=== PATIENT | male | born 1975 | race Caucasian/White ===

== ENCOUNTER 2018-10-03 12:16 | Emergency (ER) | payer BC, OTHER ==
[2018-10-03 13:07] VITALS: BP 121/78
--- NOTE | 2018-10-03 13:58 | UC ---
Hand/Wrist HPI - HPI Summary HPI Summary: Injured left thumb when playing baseball yesterday when a person ran into it as he was trying to tag him out. Complains of pain at the base of the left thumb. - History Of Current Complaint Chief Complaint: UCUpperExtremity Stated Complaint: LEFT THUMB INJURY Time Seen by Provider: 10/03/18 13:13 Hx Obtained From: Patient ?: No Onset/Duration: Sudden Onset Severity Initially: Moderate Severity Currently: Moderate Pain Intensity: 7 Character Of Pain: Dull, Aching Aggravating Factor(s): Movement, Flexion, Extension Associated Signs And Symptoms: Positive: Negative - Allergies/Home Medications Allergies/Adverse Reactions: Allergies Allergy/AdvReac Type Severity Reaction Status Date / Time Penicillins Allergy Rash Verified 10/03/18 13:01 Home Medications: Home Medications Ibuprofen TAB* [Advil TAB*] 600 mg PO Q6H PRN 10/03/18 [History Confirmed ] PMH/Surg Hx/FS Hx/Imm Hx Previously Healthy: Yes - Surgical History Surgical History: Yes Surgery Procedure, Year, and Place: tonsils - Family History Known Family History: Positive: Non-Contributory - Social History Alcohol Use: Occasionally Substance Use Type: None Smoking Status (MU): Never Smoked Tobacco Review of Systems All Other Systems Reviewed And Are Negative: Yes Motor: Positive: Negative, Other - Pain at the base of the thumb Musculoskeletal: Positive: Negative Neurological: Positive: Negative Psychological: Positive: Negative Is Patient Immunocompromised?: No Physical Exam Triage Information Reviewed: Yes Appearance: Well-Appearing, No Pain Distress, Well-Nourished Vital Signs: Initial Vital Signs Temp 97.9 F 10/03/18 13:02 Pulse 58 10/03/18 13:02 Resp 16 10/03/18 13:02 BP 121/78 10/03/18 13:02 Pulse Ox 100 10/03/18 13:02 Vital Signs Reviewed: Yes Musculoskeletal: Positive: Strength Intact, ROM Intact, Other: - Pain on palpation at the base of the left thumb. No bruising, erythema, deformity or swelling. Neurological: Positive: Alert, Muscle Tone Normal Psychological Exam: Normal Skin Exam: Normal Hand/Wrist Course/Dx - Course Course Of Treatment: Thumb x-ray: REPORT AND IMPRESSION: #. Negative for fracture or malalignment. #. Preserved joint spaces. #. Fusiform soft tissue swelling. - Differential Dx/Diagnosis Provider Diagnosis: Left thumb sprain Discharge - Sign-Out/Discharge Documenting (check all that apply): Patient Departure All imaging exams completed and their final reports reviewed: Yes - Discharge Plan Condition: Good Disposition: HOME Patient Education Materials: Finger Sprain (ED) Referrals: Zana Chiu MD [Primary Care Provider] - Zana Mcdowell MD [Medical Doctor] - Additional Instructions: Tylenol/Motrin as directed for pain. Follow up with Orthopedist in 4-5 days if no improvement. - Billing Disposition and Condition Condition: GOOD Disposition: Home
== END 2018-10-03 14:08 | disposition home or self-care (01) ==
LOC: UCCORT 12:16
DX: S63.602A Unspecified sprain of left thumb, initial encounter (principal); W50.0XXA Accidental hit or strike by another person, initial encounter; Y93.64 Activity, baseball; Y92.9 Unspecified place or not applicable
CPT/HCPCS: 99211; G0463

== ENCOUNTER 2019-02-27 14:30 | Emergency (ER) | payer BC ==
[2019-02-27 14:58] VITALS: BP 131/87
--- NOTE | 2019-02-27 15:56 | ED ---
Dizziness - HPI Summary HPI Summary: 44-year-old white male presents with acute dyspnea since yesterday associated with nausea. Patient complains of sensation of sudden sensation of room spinning associated with dizziness and nausea. Denies any recent ear infection or URI symptoms. Patient states he has family history of vertigo-like sx- his father and grandfather both with Mnire's disease in the family. - History Of Current Complaint Chief Complaint: UCDizziness Stated Complaint: DIZZY Time Seen by Provider: 02/27/19 15:01 Hx Obtained From: Patient Onset/Duration: Suddenly Timing: Constant Severity Initially: Moderate Severity Currently: Moderate Character: Head Spinning, Lightheaded, Dizzy Aggravating Factor(s): Position Change, Supine To Erect, Change In Head Position Alleviating Factor(s): Nothing Associated Signs And Symptoms: Positive: Negative - Allergies/Home Medications Allergies/Adverse Reactions: Allergies Allergy/AdvReac Type Severity Reaction Status Date / Time Penicillins Allergy Rash Verified 02/27/19 14:53 PMH/Surg Hx/FS Hx/Imm Hx Previously Healthy: Yes Endocrine/Hematology History: Denies: Hx Diabetes Cardiovascular History: Denies: Hx Hypertension History: Denies: Hx Dialysis, Hx Renal Disease - Surgical History Surgery Procedure, Year, and Place: tonsils Infectious Disease History: No Infectious Disease History: Reports: Traveled Outside the in Last 30 Days - [place] 01/24/19-01/30/19 Denies: Hx Clostridium Difficile, Hx Hepatitis, Hx Human Immunodeficiency Virus (HIV), Hx of Known/Suspected MRSA, Hx Shingles, Hx Tuberculosis, Hx Known/ Suspected VRE, Hx Known/Suspected VRSA, History Other Infectious Disease - Family History Known Family History: Positive: Non-Contributory - Social History Alcohol Use: Occasionally Substance Use Type: Reports: None Smoking Status (MU): Never Smoked Tobacco Review of Systems Constitutional: Negative Eyes: Negative ENT: Negative Cardiovascular: Negative Respiratory: Negative Gastrointestinal: Negative Genitourinary: Negative Musculoskeletal: Negative Skin: Negative Neurological: Other - sudden dizziness Psychological: Normal All Other Systems Reviewed And Are Negative: Yes Physical Exam - Summary Physical Exam Summary: Appearance: Positive: No Pain Distress Skin: Positive: Warm Head/Face: Positive: Normal Head/Face Inspection Eyes: :Normal ENT: Normal ENT inspection Neck: Positive: Supple Respiratory/Lung Sounds: Positive: Clear to Auscultation. Cardiovascular: Positive: Normal, RRR, S1, S2 Abdomen : soft, NT/ND Musculoskeletal: Positive: Normal, Strength/ROM Intact Neurological: Positive: CN 2-12 grossly intact, horizontal nystagmus Vital Signs On Initial Exam: Initial Vitals Temp Pulse Resp BP Pulse Ox 36.8 C 59 16 131/87 98 02/27/19 14:53 02/27/19 14:53 02/27/19 14:53 02/27/19 14:53 02/27/19 14:53 Diagnostics - Vital Signs Vital Signs Temp Pulse Resp BP Pulse Ox 02/27/19 14:53 36.8 C 59 16 131/87 98 - Laboratory Lab Statement: Any lab studies that have been ordered have been reviewed, and results considered in the medical decision making process. Dizzy Course/Dx - Course Assessment/Plan: dizziness occurs primarily with head movement and orthstatic change from sitting to standing, pt also state he was taking OTC green coffee beans to lose weight, advised to stop taking the supplement and see it it would stop. NO focal neuro deficits on exam or on hx. Advised to go see neurology if sx persist - Diagnoses Provider Diagnoses: Vertigo Discharge ED - Sign-Out/Discharge Documenting (check all that apply): Patient Departure All imaging exams completed and their final reports reviewed: No Studies - Discharge Plan Condition: Stable Disposition: HOME Prescriptions: Meclizine TAB* [Antivert 12.5 TAB*] 25 mg PO TID PRN 5 Days #15 tab PRN Reason: Dizziness Patient Education Materials: Vertigo (ED) Referrals: Zana Chiu MD [Primary Care Provider] - Additional Instructions: Please follow up with neurology if symptoms persist. - Billing Disposition and Condition Condition: STABLE Disposition: Home
== END 2019-02-27 15:36 | disposition home or self-care (01) ==
LOC: UCCORT 14:30
DX: R42 Dizziness and giddiness (principal); Z88.0 Allergy status to penicillin
CPT/HCPCS: 99212; G0463

== ENCOUNTER 2019-03-21 12:24 | Emergency (ER) | payer BC ==
[2019-03-21 13:00] VITALS: BP 139/95
--- NOTE | 2019-03-21 13:06 | UC ---
Upper Extremity HPI - HPI Summary HPI Summary: 10 days ago started w/ R shoulder pain, elbow and neck pain. The day prior to pain he was weight lifting which was his usual routine. no changes in lbs or form. acetaminophen and ibuprofen, heat with little relief. - History of Current Complaint Chief Complaint: UCUpperExtremity Stated Complaint: RIGHT SHOULDER COMPLAINT Time Seen by Provider: 03/21/19 12:59 Hx Obtained From: Patient Pain Intensity: 8 Pain Scale Used: 0-10 Numeric Aggravating Factor(s): Nothing Alleviating Factor(s): Nothing - Allergies/Home Medications Allergies/Adverse Reactions: Allergies Allergy/AdvReac Type Severity Reaction Status Date / Time Penicillins Allergy Unknown Rash Verified 03/21/19 12:52 Home Medications: Home Medications Acetaminophen TAB* [Tylenol TAB*] 650 mg PO Q4H PRN 03/21/19 [History Confirmed 03/21/19] Ibuprofen TAB* [Advil TAB*] 200 mg PO Q6H PRN 03/21/19 [History Confirmed ] PMH/Surg Hx/FS Hx/Imm Hx - Additional Past Medical History Additional PMH: no chronic conditions. Previously Healthy: Yes - Surgical History Surgical History: Yes Surgery Procedure, Year, and Place: tonsils - Family History Known Family History: Positive: Non-Contributory - Social History Alcohol Use: Occasionally Substance Use Type: None Smoking Status (MU): Never Smoked Tobacco Review of Systems All Other Systems Reviewed And Are Negative: Yes Constitutional: Negative: Fever, Chills, Fatigue Respiratory: Positive: Negative Cardiovascular: Positive: Negative Motor: Positive: Decreased ROM. Negative: Weakness Neurovascular: Negative: Decreased Sensation, Decreased Pulses Musculoskeletal: Positive: Arthralgia - r shoulder pain Neurological: Positive: Numbness - intermittent. Negative: Weakness, Paresthesia Physical Exam Triage Information Reviewed: Yes Appearance: Well-Appearing Vital Signs: Initial Vital Signs Temp 97.8 F 03/21/19 12:53 Pulse 58 03/21/19 12:53 Resp 16 03/21/19 12:53 BP 139/95 03/21/19 12:53 Pulse Ox 97 03/21/19 12:53 Vital Signs Reviewed: Yes Musculoskeletal: Positive: Strength Intact - POSITIVE lift off test, pain w/ shrugging, ROM Intact - R shoulder but assoc. w/ pain with movement, Other: Neurological: Positive: Alert Skin: Negative: Rashes Upper Extremity Course/Dx - Course Course Of Treatment: R shoulder pain w/ intermittent numbness into fingers after weight lifting which is his usual routine. +lift off test so will send to Ortho. could be a minor tear but for now will call this train. vitals good. short term muscle relaxer and suggested ibu Q8hrs. - Differential Dx/Diagnosis Differential Diagnosis/HQI/PQRI: Strain, Sprain, Other Provider Diagnosis: Muscle strain Discharge ED - Sign-Out/Discharge Documenting (check all that apply): Patient Departure All imaging exams completed and their final reports reviewed: No Studies - Discharge Plan Condition: Good Disposition: HOME Prescriptions: Cyclobenzaprine (NF) [Cyclobenzaprine 5 MG (NF)] 5 mg PO TID PRN 7 Days #21 tab PRN Reason: Spasms - Muscle Patient Education Materials: Muscle Strain (ED) Referrals: Garcia Middleton MD [Medical Doctor] - Additional Instructions: If worsening please follow up with your pcp and/or Orthopedist. - Billing Disposition and Condition Condition: GOOD Disposition: Home - Attestation Statements Provider Attestation: I was available for consult. This patient was seen by the CARRILLO. The patient was not presented to , seen by or examined by ma -Al Pradhan MD
== END 2019-03-21 13:37 | disposition home or self-care (01) ==
LOC: UCCORT 12:24
DX: S46.911A Strain of unspecified muscle, fascia and tendon at shoulder and upper arm level, right arm, initial encounter (principal); X50.0XXA Overexertion from strenuous movement or load, initial encounter; Y92.9 Unspecified place or not applicable; Z88.0 Allergy status to penicillin
CPT/HCPCS: 99212; G0463